=== PATIENT | male | born 1955 ===

== ENCOUNTER 2022-03-30 13:29 | Outpatient (CLI) | payer MEDICARE, OTHER, SELFPAY ==
--- NOTE | 2022-03-30 14:30 | ECHO_ITS ---
Patient Info Name: Amol Blue Age: 66 years : 1955 Gender: Male Ht: 71 in Wt: 248 lbs BSA: 2.41 m2 HR: 72 bpm BP: 138 / 75 mmHg Technical Quality: Fair Exam Date: 03/30/2022 1:34 PM Exam Location: [facility] Patient Status: Outpatient Admit Date: 03/30/2022 Staff Ordering Physician: Axel Delgado M.D. Mud Cleaner Operator: Gorge Correa RDCS, RT Attending Provider: Axel Delgado M.D. Referring Physician: Danny FAULKNER; Exam Type: CA echo doppler color flow Study Info Indications R06.00 - Dyspnea, unspecified Complete two-dimensional, color flow and Doppler transthoracic echocardiogram is performed. Strain analysis performed. Summary 1. Complete two-dimensional, color flow and Doppler transthoracic echocardiogram is performed. 2. Left ventricular chamber dimension is mildly enlarged. 3. Left ventricular systolic function is normal, estimated at 60-65%. 4. The left ventricular diastolic function is normal. 5. E/e' 5 is not elevated. 6. Global longitudinal strain is abnormal at -15.0%. 7. No pulmonary hypertension, estimated pulmonary arterial systolic pressure is 27 mmHg. 8. There is trace pulmonic regurgitation. Left Ventricle E/e' 5 is not elevated. Global longitudinal strain is abnormal at -15.0%. Left ventricular chamber dimension is mildly enlarged. Left ventricular systolic function is normal, estimated at 60-65%. The left ventricular diastolic function is normal. Right Ventricle Right ventricular systolic function is normal and with normal TAPSE 2.1 cm. Right ventricular chamber dimension is normal. Left Atria Left atrial chamber dimension is normal. Right Atria Right atrial chamber dimension is normal. Aortic Valve The aortic valve is trileaflet. There is no aortic valve stenosis. There is no aortic valve regurgitation. Pulmonic Valve There is trace pulmonic regurgitation. Mitral Valve There is no mitral valve stenosis. There is no mitral valve regurgitation. Tricuspid Valve There is no tricuspid valve regurgitation. No pulmonary hypertension, estimated pulmonary arterial systolic pressure is 27 mmHg. Pericardium/Pleural There is no pericardial effusion. Inferior Vena Cava Normal inferior vena cava with >50% collapse upon inspiration consistent with normal right atrial pressure, 5 mmHg. Aorta The aortic root size at the sinus of Valsalva is normal. Left Ventricular Outflow Tract Name Value Normal LVOT 2D LVOT Diameter 2.1 cm LVOT Doppler LVOT Peak Velocity 87 cm/s LVOT Peak Gradient 3 mmHg LVOT Mean Gradient 2 mmHg LVOT VTI 14 cm LVOT VTI/AV VTI Ratio 0.7 LVOT Stroke Volume 49 ml Mitral Valve Name Value Normal MV Doppler
== END 2022-03-30 13:30 | disposition home or self-care (01) ==
LOC: CHSIMG 13:34
PROVIDERS: PCP Family Medicine; Visit Provider Family Medicine
DX: R06.09 Other forms of dyspnea (principal)
CPT/HCPCS: 93306